=== PATIENT | male | born 2005 | race African-American/Black ===

== ENCOUNTER 2024-02-21 20:34 | Emergency (ER) | payer SELFPAY ==
[~2024-02-21] VITALS: Ht 175.3 cm; Wt 61.0 kg
[2024-02-21 21:05] VITALS: BP 116/74; PULSE 60; RESP 15; TEMP 36.72516; O2SAT 100
[2024-02-22] MEDS ORDERED: AMOX1TAB16 MT (00:34)
[2024-02-22] MEDS: AMOXICILLIN/POTASSIUM CLAVULANATE 875/125MG TAB PO ONE (01:20)
== END 2024-02-22 01:30 | disposition home or self-care (01) ==
LOC: ER 20:34
DX: S41.132A Puncture wound without foreign body of left upper arm, initial encounter (principal); J45.909 Unspecified asthma, uncomplicated; W54.0XXA Bitten by dog, initial encounter; Y93.89 Activity, other specified; Y92.89 Other specified places as the place of occurrence of the external cause; Y99.8 Other external cause status
CPT/HCPCS: 73090; 99283; Z7610 ×2